=== PATIENT | female | born 1945 | race Caucasian/White ===

== ENCOUNTER 2016-09-12 09:14 | Day surgery (SDC) | payer MEDICARE ==
[~2016-09-12 09:14] MED LIST: Bupivacaine 0.5% 50 ML MDV ONE; Lidocaine 1% with EPINEPHrine 1:100,000 50 ML MDV ONE
[2016-09-12] MEDS ORDERED: Midazolam 1 MG/ML 2 ML SDV ONE (09:49)
[2016-09-12] MEDS ORDERED: Propofol 200 MG/20 ML SDV ONE (09:49)
[2016-09-12] MEDS ORDERED: fentaNYL 100 MCG/2 ML SDV ONE (09:49)
[2016-09-12] MEDS ORDERED: Dextrose 5%-Lactated Ringers 1,000 ML IV SCH (10:00)
[2016-09-12 12:49] VITALS: BP 129/78
--- NOTE | 2016-09-12 14:24 | US ---
Ultrasound right breast wire localization. Technique: Informed oral consent was obtained. The site was prepped. The site was anesthetized. Kopa n's needle was placed into the lesion. Cystic fluid. Amount of the needle. A wire was placed at the location. Patient was sent for mammogram. No complications.
--- NOTE | 2016-09-12 14:34 | MY ---
EXAM: (Post Procedure Digital Rt) HISTORY: RIGHT BREAST NEEDLE LOCALIZATION Breast density: Scattered fibroglandular density. Findings: The wire is at the expected location of the prior visualized mass. The mass however is non visualized as cystic fluid was drained from the wire. This is discussed with Dr. Barbour.
--- NOTE | 2016-09-12 14:35 | MY ---
EXAM: (Surgical Specimen Breast) HISTORY: BREAST SPECIMAN Breast specimen contains breast tissue and the wire.
--- NOTE | 2016-09-12 19:31 | OR ---
DATE OF PROCEDURE: 09/12/2016 PREOPERATIVE DIAGNOSIS: Radiologically suspicious lesion, right breast. POSTOPERATIVE DIAGNOSIS: Radiologically suspicious lesion, right breast. OPERATIVE PROCEDURE: Ultrasound-guided needle-directed excisional biopsy, right breast ([id number]). ANESTHESIA: Local plus IV sedation. INDICATIONS FOR PROCEDURE: A 71-year-old presenting with a recently identified area of radiologically suspicious in the right breast. After preoperative evaluation and discussion, she wished to proceed with excisional biopsy. Potential risks including bleeding, infection, cosmetic deformity related to the incision, and possible need for additional treatment if malignancy is identified, were all reviewed, and the patient wishes to proceed. DETAILS OF PROCEDURE: The patient was taken to the operating room and placed in the supine position. After successful localization of the area of concern in the right breast to a large extent the lesion disappeared where some fluid came out, but the radiologist felt that the area of the pathology was well centered around the needle stiffener . The patient was placed in the operating room. IV sedation was administered, and the right breast and surrounding areas were prepped and draped. The optimal point of incision was then planned fluoroscopically. The area was anesthetized with 1% lidocaine mixed with Marcaine. A transverse incision was made and carried down through the skin and subcutaneous tissue. The breast tissue was roughly the size of a ping-pong ball configuration with around the stiffener was then excised grossly this was mildly fibrocystic. Upon removal of the specimen, palpation revealed no other areas of suspicion. The specimen radiograph was obtained, which was felt to be satisfactory. The incision was then inspected for any bleeding and incision was then closed with some 3-0 and 4-0 Vicryl stitches deep and a 4-0 Vicryl subcuticular stitch. Dressing was applied. The patient was taken to the recovery room in satisfactory condition. There were no complications. David Barbour MD /[id number]
== END 2016-09-12 13:28 | disposition home or self-care (01) ==
LOC: JP.SDS 09:14
PROVIDERS: ATTEND Surgery
DX: N60.81 Other benign mammary dysplasias of right breast (principal)
CPT/HCPCS: 19125; 76098; 76942; G0206; J2250; J2704; J3010; J7042; 88305

== ENCOUNTER 2021-10-06 16:09 | Emergency (ER) | payer MEDICARE ==
[2021-10-06 16:29] VITALS: PULSE 72
[2021-10-06] MEDS ORDERED: HYDROmorphone 1 MG/ML Syringe IM ONE (16:34)
[2021-10-06 17:56] VITALS: BP 149/57
== END 2021-10-06 18:45 | disposition home or self-care (01) ==
LOC: JP.ED 16:09
DX: S42.411A Displaced simple supracondylar fracture without intercondylar fracture of right humerus, initial encounter for closed fracture (principal); S80.211A Abrasion, right knee, initial encounter; S80.212A Abrasion, left knee, initial encounter; W01.0XXA Fall on same level from slipping, tripping and stumbling without subsequent striking against object, initial encounter
CPT/HCPCS: 29105; 73080; 96372; 99283; J1170; 99282

== ENCOUNTER 2021-10-07 10:17 | Emergency (ER) | payer MEDICARE ==
[2021-10-07 13:23] VITALS: BP 139/75; PULSE 64
[2021-10-07] MEDS ORDERED: Ibuprofen 600 MG Tab PO ONE (13:34)
== END 2021-10-07 14:05 | disposition home or self-care (01) ==
LOC: JP.ED 10:17
DX: R20.2 Paresthesia of skin (principal); Z90.49 Acquired absence of other specified parts of digestive tract; Z79.899 Other long term (current) drug therapy
CPT/HCPCS: 99283; A9270; 99281

== ENCOUNTER 2021-10-12 12:51 | Day surgery (SDC) | payer MEDICARE ==
[~2021-10-12 12:51] MED LIST changes: -Bupivacaine 0.5% 50 ML MDV ONE; +Lactated Ringers 1,000 ML IV SCH; -Lidocaine 1% with EPINEPHrine 1:100,000 50 ML MDV ONE; +ceFAZolin 2 GM in Premix Bag 1 BAG IV ONE
[2021-10-12] MEDS ORDERED: fentaNYL 250 MCG/5 ML SDV ONE ×2 (12:54→16:50)
[2021-10-12] MEDS ORDERED: Propofol 200 MG/20 ML SDV ONE (12:55)
[2021-10-12] MEDS ORDERED: Ondansetron 4 MG/2 ML SDV ONE (12:55)
[2021-10-12] MEDS ORDERED: Dexamethasone 4 MG/ML SDV ONE (12:55)
[2021-10-12] MEDS ORDERED: Glycopyrrolate 0.2 MG/ML 5 ML MDV ONE (12:58)
[2021-10-12] MEDS ORDERED: Rocuronium 50 MG/5 ML Vial ONE (12:58)
[2021-10-12] MEDS ORDERED: Neostigmine Methylsulfate 1 MG/ML 5 ML Syringe ONE (12:58)
[2021-10-12] MEDS: Nozin Nasal Sanitizer NASBOTH SCH ×2 (13:22→22:21)
[2021-10-12 13:50] LABS: ESTIMATED GFR > 60 (>60)
[2021-10-12] MEDS ORDERED: Bupivacaine 0.5% 30 ML SDV ONE (14:14)
[2021-10-12] MEDS ORDERED: Lactated Ringers 1,000 ML ONE (19:20)
[2021-10-12] MEDS ORDERED: fentaNYL 100 MCG/2 ML SDV ONE (19:29)
[2021-10-12] MEDS ORDERED: Labetalol 100 MG/20 ML MDV IV ONE (20:28)
[2021-10-12] MEDS: Labetalol 20 MG/4 ML Syringe ONE ×2 (20:30→20:40)
[2021-10-12] MEDS ORDERED: Labetalol 20 MG/4 ML Syringe IVPUSH ONE (20:34)
[2021-10-12] MEDS ORDERED: Ondansetron 4 MG/2 ML SDV IVPUSH PRN (21:12)
[2021-10-12] MEDS ORDERED: Docusate Sodium 100 MG Cap PO PRN (21:12)
[2021-10-12] MEDS ORDERED: traMADol 50 MG Tab PO PRN (21:12)
[2021-10-12] MEDS ORDERED: HYDROmorphone 0.5 MG/0.5 ML Syringe IVPUSH PRN (21:12)
[2021-10-12] MEDS ORDERED: oxyCODONE 5 MG Tab PO PRN (21:12)
[2021-10-12] MEDS ORDERED: Sodium Chloride 0.9% 1,000 ML IV SCH (21:15)
[2021-10-12] MEDS ORDERED: Labetalol 20 MG/4 ML Syringe IVPUSH PRN (21:18)
[2021-10-12] MEDS: Ketorolac 30 MG/ML SDV IVPUSH SCH (22:19)
[2021-10-12] MEDS: Acetaminophen 500 MG Tab PO SCH (22:21)
[2021-10-13] MEDS ORDERED: ceFAZolin 1 GM in Sodium Chloride 0.9% 50 ML IV SCH ×2
[2021-10-13] MEDS: Acetaminophen 500 MG Tab PO SCH ×3 (01:18→09:04)
[2021-10-13] MEDS: Ketorolac 30 MG/ML SDV IVPUSH SCH (03:55)
[2021-10-13] MEDS ORDERED: ceFAZolin 1 GM in Premix Bag 1 BAG IV SCH (08:00)
[2021-10-13] MEDS: oxyCODONE 5 MG Tab PO PRN ×2 (09:03→13:59)
[2021-10-13] MEDS: Nozin Nasal Sanitizer NASBOTH SCH (09:16)
[2021-10-13 10:59] VITALS: BP 134/48; PULSE 65
== END 2021-10-13 14:05 | disposition home or self-care (01) ==
LOC: JP.SDS 12:51 → JP.MS 21:13 → JP.SDS 10-13 14:05
PROVIDERS: ATTEND Specialist
DX: S42.471A Displaced transcondylar fracture of right humerus, initial encounter for closed fracture (principal); Z79.899 Other long term (current) drug therapy; Z90.49 Acquired absence of other specified parts of digestive tract; Z01.812 Encounter for preprocedural laboratory examination; Z20.822 Contact with and (suspected) exposure to COVID-19
CPT/HCPCS: 24545; 36415; 80053; 85027; A9270; C1713; J0690; J1100; J1885; J2405; J2704; J2710; J3010; J3490; J7120; U0002; 76000

== ENCOUNTER 2021-10-16 20:56 | Emergency (ER) | payer MEDICARE ==
[2021-10-16 21:05] VITALS: BP 191/84; PULSE 102
== END 2021-10-16 21:56 | disposition home or self-care (01) ==
LOC: JP.ED 20:56
DX: L76.32 Postprocedural hematoma of skin and subcutaneous tissue following other procedure (principal); Z88.8 Allergy status to other drugs, medicaments and biological substances; Z79.899 Other long term (current) drug therapy
CPT/HCPCS: 99282; 99283

== ENCOUNTER 2021-11-07 05:52 | Day surgery (SDC) | payer MEDICARE ==
[2021-11-07] MEDS ORDERED: Nozin Nasal Sanitizer NASBOTH ONE (06:30)
[2021-11-07] MEDS ORDERED: Nozin Nasal Sanitizer NASBOTH SCH (06:30)
[2021-11-07 06:44] LABS: ESTIMATED GFR 77 mL/min (>60)
[2021-11-07] MEDS ORDERED: Lactated Ringers 1,000 ML IV SCH (07:00)
[2021-11-07] MEDS ORDERED: fentaNYL 250 MCG/5 ML SDV ONE (07:08)
[2021-11-07] MEDS ORDERED: Neostigmine Methylsulfate 1 MG/ML 5 ML Syringe ONE (07:09)
[2021-11-07] MEDS ORDERED: Propofol 200 MG/20 ML SDV ONE (07:09)
[2021-11-07] MEDS ORDERED: Glycopyrrolate 0.2 MG/ML 5 ML MDV ONE (07:09)
[2021-11-07] MEDS ORDERED: Ondansetron 4 MG/2 ML SDV ONE (07:09)
[2021-11-07] MEDS ORDERED: Rocuronium 50 MG/5 ML Vial ONE (07:09)
[2021-11-07] MEDS ORDERED: Dexamethasone 4 MG/ML SDV ONE (07:09)
[2021-11-07] MEDS ORDERED: ceFAZolin 2 GM in Premix Bag 1 BAG IV ONE (07:30)
[2021-11-07] MEDS: Bupivacaine 0.5% 50 ML MDV ONE ×2 (08:42→09:56)
[2021-11-07] MEDS ORDERED: fentaNYL 100 MCG/2 ML SDV ONE ×3 (09:05→09:43)
[2021-11-07] MEDS ORDERED: Acetaminophen/oxyCODONE 325-5 MG Tab PO PRN (10:50)
[2021-11-07 13:44] VITALS: BP 156/93; PULSE 68
== END 2021-11-07 14:35 | disposition home or self-care (01) ==
LOC: JP.SDS 05:52
PROVIDERS: ATTEND Specialist
DX: S52.021 Displaced fracture of olecranon process without intraarticular extension of right ulna (principal); Z98.890 Other specified postprocedural states; Z88.8 Allergy status to other drugs, medicaments and biological substances; Z01.812 Encounter for preprocedural laboratory examination; Z20.822 Contact with and (suspected) exposure to COVID-19
CPT/HCPCS: 36415; 80053; 85027; A9270-GY; C1769; J0690; J1100; J2405; J2704; J2710; J3010; J3490; J7120; U0002

== ENCOUNTER 2022-05-29 12:46 | Emergency (ER) | payer MEDICARE ==
[2022-05-29] MEDS ORDERED: Hydrochlorothiazide 25 MG Tab PO ONE (14:04)
[2022-05-29 14:13] VITALS: PULSE 66
[2022-05-29] MEDS ORDERED: Lisinopril 2.5 MG Tab PO SCH (14:15)
[2022-05-29] MEDS ORDERED: Hydrochlorothiazide 12.5 MG Cap PO ONE (14:30)
[2022-05-29 14:44] VITALS: BP 146/72
== END 2022-05-29 14:47 | disposition home or self-care (01) ==
LOC: JP.ED 12:46
DX: I10 Essential (primary) hypertension (principal); M19.90 Unspecified osteoarthritis, unspecified site; Z79.899 Other long term (current) drug therapy; Z88.8 Allergy status to other drugs, medicaments and biological substances
CPT/HCPCS: 99283

== ENCOUNTER 2023-11-15 10:38 | Emergency (ER) | payer MEDICARE ==
[2023-11-15 11:03] VITALS: PULSE 65
[2023-11-15 11:59] LABS: BASOPHILS ABSOLUTE AUTO 0.03 K/uL (0.00-0.10); BASOPHILS PERCENT AUTO 0.4 % (0.1-1.3); EOSINOPHILS ABSOLUTE AUTO 0.07 K/uL (0.00-0.40); HEMATOCRIT 39.4 % (34.3-46.0); HEMOGLOBIN 13.6 g/dL (11.2-15.5); IMMATURE GRAN ABSOLUTE AUTO 0.03 K/uL (0.00-0.23); IMMATURE GRAN PERCENT AUTO 0.4 % (0.0-0.7); LYMPHOCYTES ABSOLUTE AUTO 1.37 K/uL (0.8-3.3); LYMPHOCYTES PERCENT AUTO 19.4 % (11.4-47.7); MEAN CORPUSCULAR HEMOGLOBIN 31.8 pg (31.6-35.5); MEAN CORPUSCULAR HGB CONC 34.5 g/dL (31.6-35.5); MEAN CORPUSCULAR VOLUME 92.1 fL (81.4-99.0); MONOCYTES ABSOLUTE AUTO 0.61 K/uL (0.20-0.90); MONOCYTES PERCENT AUTO 8.6 % (3.3-12.6); NEUTROPHILS ABSOLUTE AUTO 4.95 K/uL (1.0-7.6); NEUTROPHILS PERCENT AUTO 70.2 % (40.0-78.1); PLATELET COUNT,PLT 225 K/uL (130-375); RED BLOOD CELL COUNT 4.28 M/uL (3.77-5.24); WHITE BLOOD CELL COUNT,WBC 7.1 K/uL (3.2-11.0)
[2023-11-15 12:22] LABS: CALCIUM 9.9 mg/dL (8.5-10.1); CREATININE 0.8 mg/dL (0.6-1.0); EST CRCL DRUG DOSING (CG) 46.58 mL/min; POTASSIUM,K 4.2 mmol/L (3.6-5.2); TROPONIN I HIGH SENSITIVITY 5.3 pg/mL (<=60.3)
[2023-11-15 12:23] LABS: ANION GAP 12.2 mmol/L (5.0-14.0)
[2023-11-15 13:06] VITALS: BP 153/74
== END 2023-11-15 13:07 | disposition home or self-care (01) ==
LOC: JP.ED 10:38
DX: H60.502 Unspecified acute noninfective otitis externa, left ear (principal); F41.9 Anxiety disorder, unspecified; R20.2 Paresthesia of skin; I10 Essential (primary) hypertension; Z90.49 Acquired absence of other specified parts of digestive tract; Z79.899 Other long term (current) drug therapy; Z88.8 Allergy status to other drugs, medicaments and biological substances; Z91.018 Allergy to other foods
CPT/HCPCS: 36415; 80048; 83735; 84484; 85025; 93005; 99284